=== PATIENT | female | born 1945 | race Caucasian/White ===

== ENCOUNTER 2016-12-29 10:41 | Emergency (ER) | payer MEDICARE, BC ==
--- NOTE | 2016-12-29 10:55 | Emergency Department Record ---
History of Present Illness - General Chief complaint: Pain Stated complaint: LEFT SHOULDER PAIN Time Seen by Provider: 12/29/16 10:53 Source: Patient Mode of Arrival: Ambulatory Limitations: No limitations - History of Present Illness Initial comments: The patient is here due to L shoulder pain for about 4 hours. She states she woke up with the pain. It is worse with ROM and lifting. She denies any CP, SOB , NOELLE, fever, chills, or pleuritic CP. The patient does have an extensive hx of arthritis but has not had shoulder issues in the past. The patient did take a Tramadol and full dose aspirin at the start of the pain. Additionally the patient denies any CP with exertion or KAUR. MD Complaint: Extremity pain, Joint pain Onset/Timin -: Hour(s) Location: Left, Shoulder Severity scale (1-10): 3 Quality: Sharp, Other Consistency: Constant Improves with: Immobilization Worsens with: Palpation - Related Data Home Medications Medication Instructions Recorded Confirmed Last Taken Ascorbic Acid [Vitamin C] 500 mg PO DAILY cap 08/19/16 12/29/16 12/29/16 Aspirin 81 mg PO QD tab.chew 08/19/16 12/29/16 12/29/16 Calcium Carbonate/Vitamin D3 1 each PO DAILY cap 08/19/16 12/29/16 12/29/16 [Calcium 600 + Vit D 400 Softgl] Celecoxib 400 mg PO QD cap 08/19/16 12/29/16 12/29/16 Dicyclomine HCl 20 mg PO DAILY tab 08/19/16 12/29/16 12/29/16 Estradiol 1 mg PO QD tab 08/19/16 12/29/16 12/29/16 Gluc Snell/Chondro Snell A/Vit C/Mn 1 each PO DAILY cap 08/19/16 12/29/16 12/29/16 [Glucosamine 1,500 Complex Cp] Lovastatin 40 mg PO QD tab 08/19/16 12/29/16 12/29/16 Multivitamin [Multi-Vitamin Daily] 1 each PO DAILY tab 08/19/16 12/29/16 Om-3/Epa/Dha/Fish Oil/Flax/E 1 each PO DAILY cap 08/19/16 12/29/16 12/29/16 [Thera Tears Nutrition Capsule] Omeprazole 20 mg PO QD cap 08/19/16 12/29/16 12/29/16 Propylene Glycol/Peg 400 [Systane 10 ml OP DAILY 08/19/16 12/29/16 12/29/16 Ultra 0.4-0.3% Eye Drp] Tramadol HCl 50 mg PO ASDIR tab 08/19/16 12/29/16 12/29/16 Vitamin E Mixed [Vitamin E] 400 unit PO DAILY cap 08/19/16 12/29/16 12/29/16 Allergies Allergy/AdvReac Type Severity Reaction Status Date / Time Iodinated Contrast Media - Allergy Intermediate HIVES Unverified 08/19/16 08:49 Oral and cephalexin monohydrate AdvReac Intermediate DIARRHEA Unverified 08/19/16 08:49 [From [facility]] Travel Screening - Travel/Exposure Within Last 30 Days Have you traveled within the last 30 days?: No - Travel/Exposure Within Last Year Have you traveled outside the [place] in the last year?: No - Additonal Travel Details Have you been exposed to anyone with a communicable illness?: No - Travel Symptoms Symptom Screening: None Review of Systems Constitutional: Denies: Chills, Fever Eyes: Denies: Eye discharge ENT: Denies: Congestion Respiratory: Denies: Cough, Dyspnea Past Medical History - SOCIAL HISTORY Smoking Status: Never smoker - RESPIRATORY Hx Respiratory Disorders: Yes Hx Bronchitis: Yes (no problem now) Comment:: has allergies- coughs sometimes - CARDIOVASCULAR Hx Cardio Disorders: No - NEURO Hx Neuro Disorders: No - GI Hx GI Disorders: Yes Hx Reflux: Yes - Hx Genitourinary Disorders: No - ENDOCRINE Hx Endocrine Disorders: No - MUSCULOSKELETAL Hx Musculoskeletal Disorders: Yes Hx Arthritis: Yes Comment:: chronic back issues - PSYCH Hx Psych Problems: No - HEMATOLOGY/ONCOLOGY Hx Hematology/Oncology Disorders: Yes Comment:: osteopenia Family Medical History Any Significant Family History?: No Hx Cancer: Mother *Cancer Comment: stomach CA Hx Diabetes: Grandparents *Diabetes Comment: maternal grandma Hx Heart Disease: Brother/Sister, Grandparents Hx HTN: Grandparents Hx Stroke: Brother/Sister *Stroke Comment: sister TIA Physical Exam - General General Appearance: Alert, Oriented x3, Cooperative, No acute distress - Head Head exam: Atraumatic, Normocephalic, Normal inspection - Eye Eye exam: Normal appearance, PERRL - Neck Neck exam: Normal inspection, Full ROM. negative: Lymphadenopathy, Meningismus , Tenderness - Respiratory Respiratory exam: Normal lung sounds bilaterally. negative: Respiratory distress - Cardiovascular Cardiovascular Exam: Regular rate, Normal rhythm, Normal heart sounds - Extremities Extremities exam: Normal inspection (There is no joint swelling, bruising, or erythema.), Full ROM (The patient does have full ROM which does reproduce the pain 100%.), Tenderness (There is tenderness to palpation over the anterior L shoulder that does reproduce the pain.). negative: Joint swelling - Neurological Neurological exam: Normal gait. negative: Abnormal gait Course Vital Signs 12/29/16 10:46 Temperature 97.9 F Pulse Rate 52 L Respiratory 18 Rate Blood Pressure 139/76 Pulse Ox 97 - Reevaluation(s) Reevaluation #1: The patient is doing very well at this time. She denies any pain or discomfort presently. I did discuss the issues with her and did discuss her normal EKG, lab tests and xrays. At this time it seems very clear the cause of her L shoulder pain is musculoskeletal in origin. She is to continue her home pain medicines and may add Tylenol if needed. 12/29/16 12:09 Medical Decision Making - Data Complexity MDM Data: Labs Ordered and/or Reviewed, X-Ray Ordered and/or Reviewed, EKG Ordered and/or Reviewed - Lab Data Result diagrams: 12/29/16 11:23 12/29/16 11:23 - EKG Data -: EKG Interpreted by Me EKG: No Acute Changes, Normal EKG, Unchanged From Previous - Radiology Data Radiology results: Report reviewed (L shoulder: Neg for any acute changes.) Disposition Disposition: Discharge Clinical Impression: Left shoulder strain Qualifiers: Encounter type: initial encounter Qualified Code(s): S46.912A - Strain of unspecified muscle, fascia and tendon at shoulder and upper arm level, left arm , initial encounter Instructions: Arthralgia (ED) Additional Instructions: Please continue your home Tramadol and please add Tylenol if needed. Use ice to the L shoulder during the day. Please see your PCP early next week for recheck. Return to the ER for any increased pain, or any chest pain, trouble breathing, or sweating. Forms: Patient Portal Access Time of Disposition: 12:12
[2016-12-29 11:30] LABS: BASO % 0.5 % (0-6); EOS % 4.1 % (0-6); GRAN % 51.1 % (47-80); HEMATOCRIT 43.1 % (35.0-47.0); HEMOGLOBIN 14.2 gm/dl (11.6-16.0); LYMPH % 30.6 % (16-45); MEAN CELL VOLUME 94.5 fl (81-97); MEAN CORPUSCULAR HEMOGLOBIN 31.1 pg (27-33); MEAN CORPUSCULAR HGB CONC 32.9 g/dl (32-36); MEAN PLATELET VOLUME 11.1 fl (7.4-10.4); MONO % 13.7 % (0-9); PLATELET COUNT 262 K/uL (130-400); RED BLOOD COUNT 4.56 M/uL (3.80-5.40); RED CELL DISTRIBUTION WIDTH 14.7 % (11.5-14.5); WHITE BLOOD COUNT W/O DIFF 4.4 K/uL (4.2-12.2)
[2016-12-29] MEDS ORDERED: ACETAMINOPHEN 325 MG TAB PO ONE (11:34)
[2016-12-29 11:42] LABS: BLOOD UREA NITROGEN 15 mg/dL (7-17); CREATINE PHOSPHOKINASE 55 U/L (30-135); CREATININE 0.7 mg/dL (0.52-1.04); EST GLOMERULAR FILTRATION RATE > 60 ml/min; GLUCOSE,RANDOM 95 mg/dL (70-110)
[2016-12-29 11:54] LABS: CKMB 1.1 ug/L (0-6)
[2016-12-29 11:55] LABS: TROPONIN I < 0.012 ng/mL (0.00-0.034)
== END 2016-12-29 12:25 | disposition home or self-care (01) ==
LOC: ER 10:41
DX: S46.912A Strain of unspecified muscle, fascia and tendon at shoulder and upper arm level, left arm, initial encounter (principal); X58.XXXA Exposure to other specified factors, initial encounter; Y92.009 Unspecified place in unspecified non-institutional (private) residence as the place of occurrence of the external cause
CPT/HCPCS: 80048; 82550; 82553; 84484; 85025; 99284

== ENCOUNTER 2017-09-30 07:14 | Emergency (ER) | payer MEDICARE, BC ==
--- NOTE | 2017-09-30 07:37 | Emergency Department Record ---
History of Present Illness - General Chief Complaint: Cough Stated Complaint: COUGH, CHEST CONGESTION Time Seen by Provider: 09/30/17 07:26 Source: Patient Mode of Arrival: Ambulatory Limitations: No limitations - History of Present Illness Initial Comments: The patient is here due to having a URI for 2 weeks with cough, congestion, intermittent mild sputum production and wheezing. She was in the [facility] 10 days ago and was treated with a breathing tx and discharged to home on an inhaller. The patient did have a neg CXR performed then. Now due to not feeling any better she came to the ER. There is no reported CP, fever, ST, or body aches. MD Complaint: Cough, Nasal congestion, Rhinorrhea Onset/Timin -: Week(s) Consistency: Intermittent - Related Data Home Medications Medication Instructions Recorded Confirmed Last Taken Albuterol Sulfate 0.083% [Neb] 3 ml NEB .EVERY 4-6 HOURS PRN 09/30/17 09/30/17 Unknown Previous Rx's Medication Instructions Recorded Doxycycline Monohydrate [Mondoxyne 100 mg PO BID #20 capsule 09/30/17 Nl] Allergies Allergy/AdvReac Type Severity Reaction Status Date / Time Iodinated Contrast- Oral and Allergy Intermediate HIVES Verified 09/30/17 07:20 IV Dye cephalexin monohydrate AdvReac Intermediate DIARRHEA Verified 09/30/17 07:20 [From [employer]] Travel Screening - Travel/Exposure Within Last 30 Days Have you traveled within the last 30 days?: No Review of Systems Constitutional: Reports: Malaise. Denies: Chills, Fever Eyes: Denies: Eye discharge ENT: Reports: Congestion Respiratory: Reports: Cough. Denies: Dyspnea Past Medical History - SOCIAL HISTORY Smoking Status: Never smoker Alcohol Use: None Drug Use: None - RESPIRATORY Hx Respiratory Disorders: Yes Hx Bronchitis: Yes Comment:: has allergies- coughs sometimes - CARDIOVASCULAR Hx Cardio Disorders: No - NEURO Hx Neuro Disorders: No - GI Hx GI Disorders: Yes Hx Reflux: Yes - Hx Genitourinary Disorders: No - ENDOCRINE Hx Endocrine Disorders: No - MUSCULOSKELETAL Hx Musculoskeletal Disorders: Yes Hx Arthritis: Yes Comment:: chronic back issues - PSYCH Hx Psych Problems: No - HEMATOLOGY/ONCOLOGY Hx Hematology/Oncology Disorders: Yes Comment:: osteopenia Family Medical History Any Significant Family History?: Yes Hx Cancer: Mother *Cancer Comment: stomach CA Hx Diabetes: Grandparents *Diabetes Comment: maternal grandma Hx Heart Disease: Brother/Sister, Grandparents Hx HTN: Grandparents Hx Stroke: Brother/Sister *Stroke Comment: sister TIA Physical Exam - General General Appearance: Alert, Oriented x3, Cooperative, No acute distress - Head Head exam: Atraumatic, Normocephalic, Normal inspection - Eye Eye exam: Normal appearance, PERRL - ENT Throat exam: Normal inspection. negative: Tonsillar erythema, Tonsillar exudate - Neck Neck exam: Normal inspection, Full ROM. negative: Tenderness - Respiratory Respiratory exam: Normal lung sounds bilaterally. negative: Accessory muscle use, Respiratory distress, Rhonchi, Stridor, Wheezes - Cardiovascular Cardiovascular Exam: Regular rate, Normal rhythm, Normal heart sounds - GI/Abdominal GI/Abdominal exam: Soft, Normal bowel sounds. negative: Tenderness - Extremities Extremities exam: Normal inspection, Full ROM, Normal capillary refill. negative: Tenderness Course Vital Signs 09/30/17 07:20 Temperature 98.0 F Pulse Rate [ 76 Pulse Ox Probe] Respiratory 16 Rate Blood Pressure 160/81 [Left Arm] Pulse Ox 93 L - Reevaluation(s) Reevaluation #1: I did discuss the xray report with the patient and the need for F/U. 09/30/17 08:02 Medical Decision Making - Data Complexity MDM Data: X-Ray Ordered and/or Reviewed - Radiology Data Radiology results: Report reviewed (CXR: R lower lobe infiltrate) Disposition Disposition: Discharge Clinical Impression: Acute pneumonitis Disposition: Home, Self-Care Condition: (2) Stable Instructions: Community Acquired Pneumonia (ED) Additional Instructions: Please continue your home medicines and add the Doxycycline as directed. Please see your PCP next week for recheck. Return to the ER for any worsening cough, fever, chills, or any trouble breathing. Prescriptions: Doxycycline Monohydrate [Mondoxyne Nl] 100 mg PO BID #20 capsule Forms: Patient Portal Access Time of Disposition: 08:04 Quality - Quality Measures Quality Measures: N/A - Blood Pressure Screening View Details: Yes Does Patient Have Any of the Following: No Blood Pressure Classification: Pre-Hypertensive BP Reading Systolic Measurement: 138 Diastolic Measurement: 85 Screening for High Blood Pressure: Pre or Hypertensive BP, No F/U Documented [ [id number]] Pre-Hypertensive Follow-up Interventions: Referral to alternative/primary care provider.
[2017-09-30] MEDS ORDERED: DOXYCYCLINE HYCLATE 100 MG CAPSULE PO ONE (08:04)
--- NOTE | 2017-09-30 23:51 | RADIOLOGY REPORT ---
EXAM: CHEST 2 VIEWS COMPARISON: 09/20/17. HISTORY: COUGH AND CONGESTION. TECHNIQUE: Chest, two-view. FINDINGS: Cardiomediastinal silhouette is stable. There does appear to be streaky airspace disease within the right lung base, which may relate to atelectasis or developing infiltrate. This appears progressed compared to previous examination. Left lung grossly clear. No convincing pleural effusions. IMPRESSION: INTERVAL DEVELOPMENT OF ATELECTASIS OR INFILTRATE RIGHT LUNG BASE. JOB NUMBER: [id number] MTDD
== END 2017-09-30 08:13 | disposition home or self-care (01) ==
LOC: ER 07:14
DX: J18.9 Pneumonia, unspecified organism (principal)
CPT/HCPCS: 71046; 99283

== ENCOUNTER 2018-02-24 09:42 | Emergency (ER) | payer MEDICARE, BC ==
[2018-02-24] MEDS ORDERED: ACETAMINOPHEN 325 MG TAB PO ONE (10:21)
[2018-02-24] MEDS ORDERED: MAGNESIUM HYDROXIDE/AL HYDROX 30 ML, LIDOCAINE VISC 2% 15ML 15 ML PO ONE ×2 (10:21)
--- NOTE | 2018-02-24 10:24 | Emergency Department Record ---
History of Present Illness - General Chief Complaint: Chest Pain Stated Complaint: CHEST PAINS Time Seen by Provider: 02/24/18 10:07 Source: Patient Mode of Arrival: Ambulatory Limitations: No limitations - History of Present Illness Initial Comments: The patient is here due to having intermittent CP for the last 5 days. She describes the pain as a retrosternal aching that is nonradiating and not worse with exertion with the onset usually at rest. It lasts a few minutes at a time and does feel like indigestion at times. She denies any SOB or NOELLE, or sweating with it but today the pain is worse with a deep breath. The patient denies any AP, nausea, vomiting, or KNOWLES but has just not felt well this week. Presently the pain is better and basically gone. She also denies any KAUR, or an CP with exertion. MD Complaint: Chest pain Onset/Timin -: Days(s) Pain Location: Substernal Pain Radiation: None Severity: Mild Severity scale (1-10): 2 Quality: Other Consistency: Intermittent Improves With: Nothing Worsens With: Nothing - Related Data Allergies Allergy/AdvReac Type Severity Reaction Status Date / Time Iodinated Contrast- Oral and Allergy Intermediate HIVES Verified 02/24/18 09:47 IV Dye cephalexin monohydrate AdvReac Intermediate DIARRHEA Verified 02/24/18 09:47 [From [facility] [facility]] Travel Screening - Travel/Exposure Within Last 30 Days Have you traveled within the last 30 days?: No Review of Systems Constitutional: Denies: Chills, Fever Eyes: Denies: Eye discharge ENT: Denies: Congestion Respiratory: Denies: Cough, Dyspnea Cardiovascular: Denies: Arrhythmia Past Medical History - SOCIAL HISTORY Smoking Status: Never smoker Alcohol Use: None Drug Use: None - RESPIRATORY Hx Respiratory Disorders: Yes Hx Bronchitis: Yes Comment:: has allergies- coughs sometimes - CARDIOVASCULAR Hx Cardio Disorders: No - NEURO Hx Neuro Disorders: No - GI Hx GI Disorders: Yes Hx Reflux: Yes - Hx Genitourinary Disorders: No - ENDOCRINE Hx Endocrine Disorders: No - MUSCULOSKELETAL Hx Musculoskeletal Disorders: Yes Hx Arthritis: Yes Comment:: chronic back issues - PSYCH Hx Psych Problems: No - HEMATOLOGY/ONCOLOGY Hx Hematology/Oncology Disorders: Yes Comment:: osteopenia Family Medical History Any Significant Family History?: Yes Hx Cancer: Mother *Cancer Comment: stomach CA Hx Diabetes: Grandparents *Diabetes Comment: maternal grandma Hx Heart Disease: Brother/Sister, Grandparents Hx HTN: Grandparents Hx Stroke: Brother/Sister *Stroke Comment: sister TIA Physical Exam - General General Appearance: Alert, Oriented x3, Cooperative, No acute distress - Head Head exam: Atraumatic, Normocephalic, Normal inspection - Eye Eye exam: Normal appearance, PERRL, EOMI - ENT Throat exam: Normal inspection. negative: Tonsillar erythema, Tonsillar exudate - Neck Neck exam: Normal inspection, Full ROM. negative: Tenderness - Respiratory Respiratory exam: Normal lung sounds bilaterally, Chest wall tenderness (There is sternal tenderness to palpation which does reproduce the pain mildly.). negative: Respiratory distress - Cardiovascular Cardiovascular Exam: Regular rate, Normal rhythm, Normal heart sounds - GI/Abdominal GI/Abdominal exam: Soft, Normal bowel sounds. negative: Tenderness - Extremities Extremities exam: Normal inspection, Full ROM, Normal capillary refill. negative: Tenderness - Neurological Neurological exam: Alert, Normal gait, Oriented X3. negative: Abnormal gait, Altered, Motor sensory deficit Course Vital Signs 02/24/18 09:43 Temperature 97.7 F Pulse Rate 59 L Respiratory 20 Rate Blood Pressure 165/82 Pulse Ox 95 - Reevaluation(s) Reevaluation #1: The patient is feeling much better at this time. She denies any pain or discomfort. I did explain to her that her evaluation has been normal with regards to the lab work and EKG and CXR. There is some atelectasis to the R base but the patient has had no cough, fever, or sputum. Due to the nature of the vague symptoms I did recommend a short stay hospital admission for monitoring and to R/O OH. The patient is reluctant to stay in the hospital. I explained to her that the risks of NOT staying overnight are that she could go home and have an OH, stroke, become disabled and even . The patient has proper decision making capacity and is refusing the plan for admission. She is to see her PCP next week and to return to the ER for any worsening symptoms. 02/24/18 11:45 Medical Decision Making - Data Complexity MDM Data: Labs Ordered and/or Reviewed, X-Ray Ordered and/or Reviewed, EKG Ordered and/or Reviewed - Lab Data Result diagrams: 02/24/18 09:56 02/24/18 09:56 - EKG Data -: EKG Interpreted by Me EKG: No Acute Changes, Normal EKG, Unchanged From Previous (dated 12/29/16) - Radiology Data Radiology results: Report reviewed (CXR: Minor atectasis or infltrate R lung base. O/W neg.) Disposition Disposition: Discharge Clinical Impression: Chest pain, atypical Disposition: Home, Self-Care Condition: (2) Stable Instructions: Chest Pain (ED) Additional Instructions: Please take your regular medicines and see your family doctor for recheck next week. Please also see Dr. Renee in the [facility] for recheck. Return to the ER for any worsening symptoms. Please take Tylenol for pain if needed. Referrals: [facility] [Provider Group] DAMIÁN RENEE [DOCTOR OF OSTEOPATH] - Forms: Patient Portal Access Time of Disposition: 11:50 Quality - Quality Measures Quality Measures: N/A - Blood Pressure Screening View Details: Yes Does Patient Have Any of the Following: No Blood Pressure Classification: Pre-Hypertensive BP Reading Systolic Measurement: 165 Diastolic Measurement: 82 Screening for High Blood Pressure: < Pre-Hypertensive BP, F/U Documented > [ [id number]] Pre-Hypertensive Follow-up Interventions: Referral to alternative/primary care provider.
[2018-02-24 10:28] LABS: HEMATOCRIT 44.8 % (35.0-47.0); HEMOGLOBIN 15.1 gm/dl (11.6-16.0); MEAN CELL VOLUME 94.9 fl (81-97); MEAN CORPUSCULAR HGB CONC 33.7 g/dl (32-36); MEAN PLATELET VOLUME 11.5 fl (7.4-10.4); PLATELET COUNT 247 K/uL (130-400); RED BLOOD COUNT 4.72 M/uL (3.80-5.40); RED CELL DISTRIBUTION WIDTH 14.5 % (11.5-14.5); WHITE BLOOD COUNT W/O DIFF 4.5 K/uL (4.2-12.2)
[2018-02-24 10:38] LABS: BLOOD UREA NITROGEN 11 mg/dL (8-23); CREATININE 0.6 mg/dL (0.5-0.9); EST GLOMERULAR FILTRATION RATE > 60 mL/min
[2018-02-24 10:41] LABS: GLUCOSE,RANDOM 105 mg/dL (74-109)
[2018-02-24 10:42] LABS: PARTIAL THROMBOPLASTIN TIME 31.6 SECONDS (24.5-39.1); PROTHROMBIN TIME (PATIENT) 10.4 SECONDS (9.5-12.1)
[2018-02-24 10:44] LABS: CREATINE PHOSPHOKINASE 69 U/L (26-192)
[2018-02-24 10:45] LABS: CKMB 2.6 ng/mL (<3.77)
[2018-02-24] MEDS ORDERED: SUCRALFATE 1 G/10 ML UD PO ONE (11:06)
--- NOTE | 2018-02-26 10:09 | RADIOLOGY REPORT ---
EXAM: CHEST, TWO VIEWS HISTORY: CHEST PAIN AND SHORTNESS OF BREATH. TECHNIQUE: PA and lateral upright views of the chest were obtained. Comparison: 09/30/17 and 02/19/11. FINDINGS: The heart, mediastinum, and pulmonary vasculature are normal. There is very minor atelectasis or infiltrate at the right lung base. The lungs are otherwise clear. There is no pneumothorax or effusion. There are mild degenerative changes within the spine. IMPRESSION: MINOR ATELECTASIS OR INFILTRATE AT THE RIGHT LUNG BASE. JOB NUMBER: [id number] [facility]
== END 2018-02-24 12:18 | disposition home or self-care (01) ==
LOC: ER 09:42
DX: R07.89 Other chest pain (principal); J98.11 Atelectasis
CPT/HCPCS: 99284 ×2; 82550; 85730; 85610; 82553; 80048; 84484; 85379; 85027; 71046; 93005; 93010; J3490

== ENCOUNTER 2018-08-16 07:30 | Day surgery (SDC) | payer MEDICARE, BC ==
[2018-08-16] MEDS ORDERED: PROPOFOL 10 MG/ML VIAL IV ONE (07:31)
[2018-08-16] MEDS ORDERED: LIDOCAINE 2% MDV (20MG/ML) 20ML VIAL IV ONE (07:31)
--- NOTE | 2018-08-17 08:50 | Operative Note ---
DATE OF SURGERY: 08/16/18 OPERATION: 1. ESOPHAGOGASTRODUODENOSCOPY with photo. 2. COLONOSCOPY. PREOPERATIVE DIAGNOSES: 1. Dyspepsia. 2. Personal history of colon polyps. POSTOPERATIVE DIAGNOSES: 1. Normal upper endoscopy. 2. Normal lower endoscopy. PROCEDURE: After informed consent was obtained from the patient, she was placed in the left lateral decubitus position in the endoscopy suite, sedated and monitored by the department of anesthesia. A well-lubricated [id number] gastroscope was placed in the posterior oropharynx and under direct visualization passed to the proximal esophagus. The endoscope was advanced through the proximal, mid, and distal esophagus. The GE junction and esophagus were unremarkable. The gastric body, antrum, pylorus, duodenal bulb and sweep were also unremarkable. J-turn views of the proximal stomach were unrevealing. The endoscope was straightened. The duodenum again inspected. No new findings or abnormalities identified. The stomach was again inspected and was unremarkable. The endoscope was removed from the patient. No new findings were noted upon retrograde examination. Digital rectal exam was unremarkable. A well-lubricated [id number] colonoscope was inserted into the rectum and advanced to the cecum. Preparation quality was good. The cecum, cecal bulb, ileocecal valve, appendiceal orifice, ascending colon, transverse colon, descending colon, sigmoid colon, and rectum were unremarkable. Forward and J-turn views of the rectum and anorectum were unrevealing. The endoscope was straightened, the rectal ampulla deflated, and the endoscope was removed. RECOMMENDATIONS: The patient should resume her medications and diet. I would recommend a repeat colonoscopy in 5 years. As always, thank you for allowing me to participate in the healthcare of your patients. CC: Lyudmila LEY
== END 2018-08-16 09:04 | disposition home or self-care (01) ==
LOC: HOP 07:30
PROVIDERS: ATTEND Internal Medicine Gastroenterology
DX: Z12.11 Encounter for screening for malignant neoplasm of colon (principal); Z86.010 Personal history of colon polyps; R10.13 Epigastric pain
CPT/HCPCS: 00813; 43235; G0105

== ENCOUNTER 2019-10-16 06:57 | Day surgery (SDC) | payer MEDICARE, BC ==
[~2019-10-16 06:57] MED LIST: SCOPOLAMINE 1 PATCH TDSY TD ONE
[2019-10-16] MEDS ORDERED: MIDAZOLAM HCL 2MG/2ML VIAL IV ONE (06:58)
[2019-10-16] MEDS ORDERED: LIDOCAINE 2% MDV (20MG/ML) 20ML VIAL IV ONE (06:58)
[2019-10-16] MEDS ORDERED: PROPOFOL 10 MG/ML VIAL IV ONE (06:58)
[2019-10-16] MEDS ORDERED: FENTANYL PF 100MCG/2ML VIAL IV ONE (06:58)
[2019-10-16] MEDS ORDERED: RINGERS SOLUTION,LACTATED 1,000 ML IV ONE (07:41)
[2019-10-16] MEDS ORDERED: BUPIVACAINE 0.5% W/EPI MPF 30 ML VIAL SQ ONE (09:10)
[2019-10-16] MEDS ORDERED: DEXAMETHASONE PRESERVATIVE FREE 10MG/ML VIAL SQ ONE (09:10)
[2019-10-16] MEDS ORDERED: LIDOCAINE 1% W/EPI 1:100,000 MDV 20 ML VIAL SQ ONE (09:10)
--- NOTE | 2019-10-16 09:44 | Operative Note - [place] ---
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 OPERATION: RADIOFREQUENCY RHIZOTOMY BILATERAL CERVICAL FACETS C3-C4, C4-C5, AND C5-C6. SURGEON: Luis Daniel Keenan D.O. ANESTHESIA: Local sedation. ANESTHESIA PROVIDER: Pop Wood CRNA INDICATION: This patient presents with prior neck pain. Examination shows tenderness of the cervical spine. Range of motion does cause pain in the neck with extension. Diagnostics showed diffuse multiple level spondylosis. A facet series showed 75% relief. Due to the failure of therapy and the success of the facet series, the patient presents for rhizotomy for more intermediate relief. PROCEDURE: Intravenous line, vital sign monitoring, IV sedation, prepped and draped, sterile technique. The patient was positioned prone. Sterile prep, sterile technique. The cervical facet levels in the area of pain at C3-C4, C4- C5, and C5-C6 bilateral, each one of these points on the skin infiltrated, a 22- gauge rhizotomy cannula was positioned, stimulation trial was conducted, rhizotomy burn performed along with antiinflammatories in sites, topic antibiotic, sterile dressing applied. Will monitor and evaluate. JOB NUMBER: [id number] MTDD
== END 2019-10-16 10:14 | disposition home or self-care (01) ==
LOC: SUR 06:57
PROVIDERS: ATTEND Pain Medicine Interventional Pain Medicine
DX: M48.12 Ankylosing hyperostosis [Forestier], cervical region (principal); E78.00 Pure hypercholesterolemia, unspecified; K21.9 Gastro-esophageal reflux disease without esophagitis
CPT/HCPCS: 64633; 64634 ×2; 01936; J1100; J3010; J7120